=== PATIENT | male | born 1990 | race African-American/Black ===

== ENCOUNTER 2016-12-31 03:10 | Emergency (ER) | payer OTHER ==
[~2016-12-31] VITALS: Ht 167.6 cm; Wt 71.2 kg
[2016-12-31 03:15] VITALS: BP 138/62
[2016-12-31] MEDS ORDERED: COMPTAB PO (03:19)
[2016-12-31] MEDS ORDERED: PRED20TA PO (03:39)
[2016-12-31] MEDS ORDERED: diphenhydrAMINE 25 MG CAP PO ONE (03:45)
[2016-12-31] MEDS ORDERED: FAMOTIDINE 20 MG TAB PO ONE (03:45)
[2016-12-31] MEDS ORDERED: predniSONE 20 MG TAB PO ONE (03:45)
== END 2016-12-31 04:03 | disposition home or self-care (01) ==
LOC: M ED 03:43
DX: T78.40XA Allergy, unspecified, initial encounter (principal); B20 Human immunodeficiency virus [HIV] disease; Z79.899 Other long term (current) drug therapy